=== PATIENT | male | born 1980 | race Caucasian/White ===

== ENCOUNTER → 2018-03-19 | Outpatient (CLI) | payer OTHER ==
[~2018-03-19] MED LIST: ALBUTEROL2.5 MG/31 INH; DOXYCYCLINE 10100 M2 PO; NEBULIZER MISCELL; VENTOLIN HFA 1818 GM INH
== END ==
LOC: M.RAD 10:49
DX: R05 Cough (principal)

== ENCOUNTER 2018-03-20 12:52 | Emergency (ER) | payer OTHER ==
[~2018-03-20] VITALS: Ht 172.7 cm; Wt 83.5 kg
[2018-03-20] MEDS ORDERED: DOXYCYCLINE 10100 M2 PO (12:58)
[2018-03-20 13:42] LABS: ABSOLUTE EOSINOPHILS 0.1 thou/uL (0.0-0.7); ABSOLUTE LYMPHOCYTES 1.3 thou/uL (0.8-5.3); ABSOLUTE MONOCYTES 0.7 thou/uL (0.0-1.2); ABSOLUTE NEUTROPHILS 6.4 thou/uL (1.6-8.1); BASOPHILS 0.4 %; EOSINOPHILS 1.4 %; HEMATOCRIT 47.9 % (42.0-52.0); HEMOGLOBIN 16.5 gm/dL (14.0-18.0); LYMPHOCYTES 15.1 %; MCH 30.8 pg (26.0-34.0); MCHC 34.3 g/dL (28.0-37.0); MCV 89.7 fL (80.0-100.0); MONOCYTES 8.2 %; MPV 8.6 fl. (7.2-11.1); NUCLEATED RBCS 0 /100WBC; PLATELET COUNT* 188 thou/uL (150-400); POLYS 74.9 %; RBC 5.34 mil/uL (4.50-6.00); WBC 8.6 thou/uL (4.0-11.0)
[2018-03-20 13:51] LABS: ANION GAP 9 mmol/L (7-16); BUN 16 mg/dL (7-18); CHLORIDE 100 mmol/L (98-107); CO2 27 mmol/L (21-32); CREATININE 1.2 mg/dL (0.6-1.3); GLUCOSE 98 mg/dL (70-99); POTASSIUM 4.1 mmol/L (3.5-5.1); SODIUM 136 mmol/L (136-145)
[2018-03-20 14:01] LABS: ALBUMIN 3.9 g/dL (3.4-5.0); ALKALINE PHOSPHATASE 71 U/L (46-116); NT-PRO BRAIN NAT PEPTIDE 10 pg/mL (<300); SGOT 27 U/L (15-37); SGPT 59 U/L (30-65); TOTAL PROTEIN 8.2 g/dL (6.4-8.2); TROPONIN-I LEVEL <0.06 ng/mL (<0.06)
[2018-03-20] MEDS ORDERED: VENTOLIN HFA 1818 GM INH (16:07)
[2018-03-20] MEDS ORDERED: NEBULIZER MISCELL (16:07)
[2018-03-20] MEDS ORDERED: ALBUTEROL2.5 MG/31 INH (16:07)
[2018-03-20 16:20] VITALS: BP 115/73
--- NOTE | 2018-03-21 16:22 | EKG ---
[place] [address] ELECTROCARDIOGRAM REPORT Name: KATIA MONGE Room: [facility]#: [id number] Admission: 03/20/18 Attend Phys: Discharge: 03/20/18 Date of : 78 Report #: [id number] THIS REPORT FOR: //name// [facility] ED Test Date: 2018-03-20 Test Time: 15:05:08 Pat Name: KATIA MONGE Department: Room: Gender: M Building Principal: : 1980 Requested By: Stephany Romero Order Number: [id number] MD: Steve Feng Measurements Intervals [place] Rate: 87 P: 53 NV: 162 QRS: 29 QRSD: 110 T: 44 QT: 373 QTc: 449 Interpretive Statements Sinus rhythm Probable left atrial enlargement Baseline wander in lead(s) V6 No previous ECG available for comparison INTRAVENTRICULAR CONDUCTION DELAY of right type Electronically Signed On 03-21-2018 16:22:36 CDT by Steve Feng [email or web address] <ELECTRONICALLY SIGNED> By: Steve Feng MD, [facility] 03/21/18 1622 1505 1505 Steve Feng MD, FACC /EPI
== END 2018-03-20 16:20 | disposition home or self-care (01) ==
LOC: M.ERS 12:52
PROVIDERS: Nurse Practitioner Family
DX: J18.1 Lobar pneumonia, unspecified organism (principal)

== ENCOUNTER → 2018-05-22 | Outpatient (CLI) | payer OTHER | LOC: M.RAD 16:33 | DX: J18.9 Pneumonia, unspecified organism (principal) ==